=== PATIENT | male | born 1955 | race Caucasian/White ===

== ENCOUNTER 2023-01-21 12:45 | Outpatient (AMB) | payer MEDICARE, MEDICAID, SELFPAY ==
--- NOTE | 2023-01-21 13:04 | A.OFFVIS_ITS ---
Intake Vital Signs 3 01/21/23 13:13 01/21/23 13:16 01/21/23 13:19 Height 5 ft 7 in Weight 177 lb BMI 27.7 BP 219/70 H 202/94 H 189/70 H Blood Pressure Location Rt brachial Lt brachial Rt brachial Position Sitting Sitting Pulse 80 Pulse Source Pulse Oximeter Pulse Oximetry (%) 96 Oxygen Delivery Method Room Air Intake Visit Reasons: Postlaminectomy Syndrome Intake Note: Pain today 10 after taking pain medication Skid Strapper Required: No Accompanied by: Self / Same As Patient Allergies No Known Allergies Allergy (Verified 01/21/23 13:13) HPI Postlaminectomy Syndrome 2 HPI0 Details Patient is a pleasant 67 years old male with prior history of diabetes type 2, lower back pain and back surgeries x4 with fusion, cervical fusion in 2000, most recent L5-S1 surgery in 2017 ([facility]) presents today for initial evaluation for potential interventional treatments for his chronic back pain. He was considered for dorsal column stimulation. However his previous provider at [facility] indicated that his canal was too small and due to hardware placement, he is not good candidate for SCS. He has been refractory to conservative management in the past. His back pain is axial and also spreads across his lumbar and sacral regions and into his right lower extremity with numbness in his right foot. Patient recently received Caudal EMMA injection on 01/12/23 with no pain relief and no symptom improvement. Pain increases with walking, prolonged sitting or standing. Pain affects his ADLs, mobility, functioning, sleep, mood, and quality of life. He can tolerate standing in flex forward position with the cane and leaning against a wall or object. He was referred to our office by [facility] for potential peripheral nerve stimulation. Patient is currently managing his pain with opioid medication including MS Contin ER 15 mg daily, Oxycodone 10 mg 5x/day as needed and Pregabalin 200 mg TID which decreases his pain to 5-6/10. He reports being on much higher doses of opioids than this, including Fentanyl patch 100 mcg and MS Contin 300 mg BID. 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 Patient is hoping to decrease his pain so he can visit his siblings and grandson in other states. Currently he cannot tolerate long car or plane rides due to significant back pain. Denies any fever, abdominal or groin pain, bladder or bowel dysfunction or saddle anesthesia. Location Lower back, right leg, bilateral feet, right foot worse Duration Chronic pain for 44 years, worse over the last 10 years Characteristics of symptom or complaint Aching, burning, numbness, sharp, shooting, dull Aggravating or associated factors Any movement, walking, prolonged sitting or standing, weather changes Relieving factors Oxycodone 10mg 5x daily, Morphine ER 15 mg daily, Tylenol, heat therapy Treatment PT- no improvement, back surgeries x4, recent Caudal EMMA-no pain relief [facility] Medical History (Updated 01/24/23 @ 20:06 by EVA Posadas) Lumbar degenerative disc disease Radiculopathy, lumbar region Hearing loss Hepatitis C Type 2 diabetes mellitus Vertebral artery occlusion Migraine Hypertension Surgical History (Updated 01/21/23 @ 13:43 by Monica James) History of neck surgery History of back surgery History of cholecystectomy History of appendectomy Social History Alcohol intake: never Patient Tobacco Use Status: Current everyday Tobacco user Tobacco use type: Cigarette Cigarette Packs Per Day: 5 Review of Systems Const All systems reviewed & are unremarkable except as noted in HPI and below Physical Exam Vital Signs: Last Vital Signs Pulse 80 01/21/23 13:13 BP 189/70 H 01/21/23 13:19 Pulse Ox 96 01/21/23 13:13 Oxygen Delivery Method Room Air 01/21/23 13:13 BMI result Body Mass Index 27.7 General: Appears afebrile. Alert and oriented. Mood and affect appropriate. Follows and participates in conversation appropriately. Respiratory effort is unlabored. No cough. Able to transition from sit to stand unassisted. Uses cane with ambulation. Ambulates with bilaterally normal heel strike and toe off, but reports unsteadiness on the right. Back/Spine/Pelvis Other: Antalgic gait, mild limping. Can flex forward to 55-65 degrees and extend to 5- 10 degrees before experiencing lumbar pain. Demonstrates 5/5 left and 4/5 right strength of quadriceps bilaterally as well as flexion/dorsiflexion of bilateral feet against resistance. 2+ pedal pulses bilaterally. Seated straight leg rise with dorsiflexion positive bilaterally, worse on the left. Diminished patellar and achilles reflexes bilaterally. Facet loading test positive bilaterally. Pino sign, Mike?s, Pelvic compression and Stinchfield tests are positive bilaterally. No groin pain with I/E hip rotations. Valsalva maneuver negative. Well healed mid to lower back multiple scars. Cervical Spine: cervical muscular tenderness and No Cervical spine tenderness Thoracic/Lumbar Spine: thoracic and lumbar spine normal to inspection, Thoracic/lumbar spine scar(s), Lasegue's sign positive (right-localized, left- diffuse), pain with thoraco-lumbar ROM, paraspinal muscle tenderness, thoraco- lumbar ROM limited, No thoracic spinal tenderness and lumbar spinal tenderness Pelvis: buttock tenderness on the right Sacroiliac joints: bilaterally tender to palpation Results Reviewed Results Reviewed: Assessment & Plan Assessment & Plan (1) Lumbar post-laminectomy syndrome: Code(s): M96.1 - Postlaminectomy syndrome, not elsewhere classified (2) Lumbar degenerative disc disease: Code(s): M51.36 - Other intervertebral disc degeneration, lumbar region (3) Low back pain: Code(s): M54.50 - Low back pain, unspecified (4) Radiculopathy, lumbar region: Code(s): M54.16 - Radiculopathy, lumbar region Plan Request sent to [facility] for most recent thoracic and lumbar MRIs. Patient will bring disc with most recent thoracolumbar images to assess spinal canal and epidural cross-sectional areas. Discussed neuromodulation with Nevro SCS trial and implant for post laminectomy syndrome of his lumbar spine after reviewing his most recent thoracolumbar imaging. Patient is most likely not a candidate for Sprint PNS trial as well as RFA due to hardware placement. All questions were answered and the patient is in agreement of plan. Follow-up after imaging review and sooner as needed. Coding Level of Care Code New Pt Level 4 (86473) Diagnoses Lumbar post-laminectomy syndrome M96.1 Lumbar degenerative disc disease M51.36 Low back pain M54.50 Radiculopathy, lumbar region M54.16
[2023-01-21 13:13] VITALS: BP 219/70; PULSE 80; O2SAT 96; BMI 27.7
[2023-01-21 13:16] VITALS: BP 202/94
[2023-01-21 13:19] VITALS: BP 189/70
== END 2023-01-21 13:50 | disposition home or self-care (01) ==
PROVIDERS: PCP Internal Medicine; Visit Provider Nurse Practitioner Family
DX: M96.1 Postlaminectomy syndrome, not elsewhere classified (principal); M51.36 Other intervertebral disc degeneration, lumbar region; M54.50 Low back pain, unspecified; M54.16 Radiculopathy, lumbar region
CPT/HCPCS: 99204

== ENCOUNTER → 2023-01-21 12:45 | Outpatient (BNVA) | payer MEDICARE, MEDICAID, SELFPAY | PROVIDERS: PCP Internal Medicine; Visit Provider Nurse Practitioner Family ==

== ENCOUNTER 2023-05-19 16:49 | Outpatient (REF) | payer MEDICARE, MEDICAID, SELFPAY ==
--- NOTE | ~2023-05-19 | MR_ITS ---
MR THORACIC SPINE WITHOUT CONTRAST CLINICAL INFORMATION: Postlaminectomy syndrome. COMPARISON: Thoracic spine MRI 07/09/2020. TECHNIQUE: MRI of the thoracic spine was obtained using routine sequences without contrast. FINDINGS: There are 12 rib bearing thoracic type vertebral bodies. Artifact from laminar hooks and Hammond rods within the lower thoracic spine as well as partially imaged posterior fusion hardware within the lower lumbar spine, discussed in detail on the corresponding lumbar spine MRI. The spinal canal is not diagnostically assessed at the lower thoracic through lumbar levels due to significant distortion artifact from the surgical hardware. There is an upper thoracic kyphosis. Vertebral body heights are maintained. There are large multilevel endplate osteophytes within the mid to lower thoracic spine. No bone marrow edema. No acute fractures. Mild chronic upper endplate height loss at the T3 and T4 levels. Thoracic vertebral body heights are otherwise maintained. There is moderate disc volume loss at the T7-T8 level. There are small shallow disc protrusions at the T6-T7, T7-T8, and T8-T9 levels that minimally indent the ventral thecal sac at these levels. The imaged thoracic spinal cord is normal in morphology. Nondiagnostic assessment of the thoracic spinal cord at the T10-T11 level due to significant artifact from the surgical hardware. Partially imaged anterior fusion hardware within the lower cervical spine. There is a 1.7 cm right adrenal nodule that can be further assessed with adrenal protocol CT MR/MR thoracic spine wo con IMPRESSION: - Artifact from laminar hooks and Hammond rods within the lower thoracic spine as well as partially imaged posterior fusion hardware within the lower lumbar spine, discussed in detail on the corresponding lumbar spine MRI. The spinal canal and thoracic cord are not diagnostically assessed at T10-T11 level due to significant distortion artifact from the surgical hardware. - There is multilevel thoracic spondylosis. There is no severe central canal stenosis and there is no severe foraminal stenosis at the imaged thoracic levels. Nondiagnostic assessment of the T10-T11 level due to artifact. Large endplate osteophytes bilaterally at the T5-T10 levels. - There is a 1.7 cm right adrenal nodule that can be further assessed with adrenal protocol CT
--- NOTE | ~2023-05-19 | MR_ITS ---
MR LUMBAR SPINE WITHOUT AND WITH CONTRAST CLINICAL INFORMATION: Lumbar region radiculopathy. COMPARISON: Thoracic spine MRI performed earlier the same day. Lumbar spine MRI 09/02/2021. TECHNIQUE: MRI of the lumbar spine was obtained using routine sequences with and without contrast. Intravenous contrast: 8 mL Gadavist. FINDINGS: There are 5 nonrib-bearing lumbar-type vertebral bodies. Partially imaged Hammond rods with laminar hooks extending from the lower thoracic spine to the L3 level. Additional postoperative changes following posterior instrumented fusion spanning the L1-S1 levels and interbody fusion at L3-L4, L4-L5, and L5-S1. The surgical hardware is not diagnostically assessed on MRI and the surgical hardware results in significant artifact that limits assessment on this examination. No definite bone marrow edema accounting for artifact. The vertebral body heights are maintained. There is moderate to severe disc volume loss at T12-L1 and L1-L2. No definite pathologic enhancement with assessment limited by the degree of artifact at the postoperative levels. Severe paraspinal muscular atrophy bilaterally. At L1-L2, there are postoperative changes following laminectomy and posterior instrumented fusion. The central canal is patent and there is no foraminal stenosis. At L2-L3, there are postoperative changes following posterior instrumented fusion. Significant artifact from the Hammond rods and laminar hooks results in nondiagnostic assessment of the central canal and subarticular zones at this level. There is no foraminal stenosis. At L3-L4, there are postoperative changes following posterior instrumented lumbar interbody fusion and right lateral instrumented fusion. There is no central canal stenosis and there is no significant foraminal stenosis. At L4-L5, there are postoperative changes following laminectomy and posterior instrumented lumbar interbody fusion. There is no central canal stenosis. Osteophytic ridging contacts the traversing right L5 nerve root within the right subarticular zone and results in right-sided foraminal stenosis. At L5-S1, there are postoperative changes following posterior instrumented lumbar interbody fusion. There is diffuse osteophytic ridging without central canal stenosis. There is mild foraminal encroachment bilaterally. MR/MR lumbar spine wo/w con IMPRESSION: - Partially imaged Hammond rods with laminar hooks extending from the lower thoracic spine to the L3 level. Additional postoperative changes following posterior instrumented fusion spanning the L1-S1 levels and interbody fusion at L3-L4, L4-L5, and L5-S1 as well as right lateral instrumented fusion at L3-L4. The surgical hardware is not diagnostically assessed on MRI and the surgical hardware results in significant artifact that limits assessment on this examination. - At the L4-L5 postsurgical level, osteophytic ridging contacts the traversing right L5 nerve root within the right subarticular zone and results in right-sided foraminal encroachment which is difficult to assess due to artifact from the surgical hardware. There is also nondiagnostic assessment of the central canal and subarticular zones at L2-L3 due to artifact. Additional degenerative changes throughout the lumbar spine as discussed in detail above. Post contrast imaging is partially nondiagnostic due to artifact. - Severe paraspinal muscular atrophy bilaterally.
[2023-05-19] MEDS: gadobutroL 10 ML VIAL IVPUSH (18:17)
== END 2023-05-19 16:50 | disposition home or self-care (01) ==
LOC: HO.MRI 16:49
PROVIDERS: PCP Nurse Practitioner Adult Health; Visit Provider Nurse Practitioner Family
DX: M54.16 Radiculopathy, lumbar region (principal); M51.36 Other intervertebral disc degeneration, lumbar region; M96.1 Postlaminectomy syndrome, not elsewhere classified; M54.50 Low back pain, unspecified
CPT/HCPCS: 72146; 72158; A9585

== ENCOUNTER 2023-06-06 12:47 | Outpatient (REF) | payer MEDICARE, MEDICAID, SELFPAY ==
--- NOTE | ~2023-06-06 | XR_ITS ---
Examination: Thoracic and lumbar spine. CLINICAL INDICATION: Radiculopathy lumbar region COMPARISON: MRI thoracic and lumbar spine to a 24. TECHNIQUE: 3 views thoracic spine and 5 views lumbar spine. FINDINGS: Thoracic spine: There is maintained thoracic kyphosis. Mild indistinctness changes seen in mid dorsal spine with ventral spondylosis. There are 2 Hammond rods extending from lower dorsal dorsal spine inferiorly to the mid lumbar spine. There is no compression fracture of any of the dorsal vertebrae. There is moderate spondylosis. No lytic or sclerotic process seen. The paravertebral soft tissues are normal. Incidentally noted is ventral plate and screws for lower cervical spine fusion of C5 5, C6 and C7 vertebra. Lumbar spine: There is mild straightening of lumbar lordosis with Hammond rods extending from the L1 to S1 vertebra. There are bilateral pedicular screws L1 to S1 vertebra. Also visualized is a right lateral plate and screws from L3 through L4 vertebra for stability. There are disc prosthesis at L4-L5 and L3-L4 disc level for fusion. No aggressive lytic or sclerotic process seen. The paravertebral soft tissues are normal. There is no hardware malfunction. XR/XR thoracic spine 3V IMPRESSION: There are 2 Hammond rods extending from lower dorsal spine inferiorly to the mid lumbar spine. There is no thoracic spine compression fracture. There is moderate spondylosis throughout dorsal and lumbar spine. No lytic or sclerotic process seen. There is no hardware malfunction. 2 additional Hammond rods from L1 through S1 vertebra with bilateral pedicular screws at the vertebral levels. This is stabilized right lateral plate from L3 through L4 vertebra. There are disc prosthesis at L3-L4 and L4-L5 disc levels. No hardware malfunction seen. No aggressive lytic or sclerotic process of dorsal spine.
--- NOTE | ~2023-06-06 | XR_ITS ---
Examination: Thoracic and lumbar spine. CLINICAL INDICATION: Radiculopathy lumbar region COMPARISON: MRI thoracic and lumbar spine to a 24. TECHNIQUE: 3 views thoracic spine and 5 views lumbar spine. FINDINGS: Thoracic spine: There is maintained thoracic kyphosis. Mild indistinctness changes seen in mid dorsal spine with ventral spondylosis. There are 2 Hammond rods extending from lower dorsal dorsal spine inferiorly to the mid lumbar spine. There is no compression fracture of any of the dorsal vertebrae. There is moderate spondylosis. No lytic or sclerotic process seen. The paravertebral soft tissues are normal. Incidentally noted is ventral plate and screws for lower cervical spine fusion of C5 5, C6 and C7 vertebra. Lumbar spine: There is mild straightening of lumbar lordosis with Hammond rods extending from the L1 to S1 vertebra. There are bilateral pedicular screws L1 to S1 vertebra. Also visualized is a right lateral plate and screws from L3 through L4 vertebra for stability. There are disc prosthesis at L4-L5 and L3-L4 disc level for fusion. No aggressive lytic or sclerotic process seen. The paravertebral soft tissues are normal. There is no hardware malfunction. XR/XR lumbar spine 4V min IMPRESSION: There are 2 Hammond rods extending from lower dorsal spine inferiorly to the mid lumbar spine. There is no thoracic spine compression fracture. There is moderate spondylosis throughout dorsal and lumbar spine. No lytic or sclerotic process seen. There is no hardware malfunction. 2 additional Hammond rods from L1 through S1 vertebra with bilateral pedicular screws at the vertebral levels. This is stabilized right lateral plate from L3 through L4 vertebra. There are disc prosthesis at L3-L4 and L4-L5 disc levels. No hardware malfunction seen. No aggressive lytic or sclerotic process of dorsal spine.
== END 2023-06-06 12:48 | disposition home or self-care (01) ==
LOC: HO.XRAY 12:47
PROVIDERS: Absent Provider Nurse Practitioner Family; PCP Nurse Practitioner Adult Health; Visit Provider Anesthesiology
DX: M54.16 Radiculopathy, lumbar region (principal); M51.36 Other intervertebral disc degeneration, lumbar region; M54.50 Low back pain, unspecified; M96.1 Postlaminectomy syndrome, not elsewhere classified
CPT/HCPCS: 72072; 72110; 99212

== ENCOUNTER 2023-06-06 12:47 | Outpatient (AMB) | payer MEDICARE, MEDICAID, SELFPAY ==
[2023-06-06 13:05] VITALS: BP 160/72; PULSE 73; O2SAT 97; BMI 29.1
--- NOTE | 2023-06-06 13:05 | MHC.OFFVIS ---
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 He had multiple surgeries in the thoracic and lumbar spine. Those are fusions with hardware. Treatment with spinal cord stimulator Nevro was offered to the patient. He was also referred to us by [facility] to do peripheral nerve stimulation. However I am not sure what peripheral nerves I can stimulate to alleviate this patient's pain with this extensive hardware. First of all the patient was sent by his nurse practitioner for x-ray of the thoracic and lumbar spine to assess the possibility of interventional therapy. At the same time I would like to schedule him for psychological evaluation. Patient is under impression that his psychiatrist can issue him psychological evaluation and clearance for the procedure. I informed him that if his psychiatrist are not able to do so he needs to schedule appointment for psychological evaluation here in my office. He does not have computer at home. [facility] Medical History (Updated 01/24/23 @ 20:06 by EVA Posadas) Lumbar degenerative disc disease Radiculopathy, lumbar region Hearing loss Hepatitis C Type 2 diabetes mellitus Vertebral artery occlusion Migraine Hypertension Surgical History (Updated 01/21/23 @ 13:43 by Monica James) History of neck surgery History of back surgery History of cholecystectomy History of appendectomy Social History Alcohol intake: never Patient Tobacco Use Status: Current everyday Tobacco user Tobacco use type: Cigarette Cigarette Packs Per Day: 5 Review of Systems Const All systems reviewed & are unremarkable except as noted in HPI and below Physical Exam Vital Signs: Last Vital Signs Pulse 73 06/06/23 13:05 BP 160/72 H 06/06/23 13:05 Pulse Ox 97 06/06/23 13:05 Oxygen Delivery Method Room Air 06/06/23 13:05 BMI result Body Mass Index 29.1 General: Appears afebrile. Alert and oriented. Mood and affect appropriate. Follows and participates in conversation appropriately. Respiratory effort is unlabored. No cough. Able to transition from sit to stand unassisted. Uses cane with ambulation. Ambulates with bilaterally normal heel strike and toe off, but reports unsteadiness on the right. Back/Spine/Pelvis Other: Antalgic gait, mild limping. Can flex forward to 55-65 degrees and extend to 5-10 degrees before experiencing lumbar pain. Demonstrates 5/5 left and 4/5 right strength of quadriceps bilaterally as well as flexion/dorsiflexion of bilateral feet against resistance. 2+ pedal pulses bilaterally. Seated straight leg rise with dorsiflexion positive bilaterally, worse on the left. Diminished patellar and achilles reflexes bilaterally. Facet loading test positive bilaterally. Pino sign, Mike?s, Pelvic compression and Stinchfield tests are positive bilaterally. No groin pain with I/E hip rotations. Valsalva maneuver negative. Well healed mid to lower back multiple scars. Cervical Spine: cervical muscular tenderness and No Cervical spine tenderness Thoracic/Lumbar Spine: thoracic and lumbar spine normal to inspection, Thoracic/lumbar spine scar(s), Lasegue's sign positive (right-localized, left-diffuse), pain with thoraco-lumbar ROM, paraspinal muscle tenderness, thoraco-lumbar ROM limited, No thoracic spinal tenderness and lumbar spinal tenderness Pelvis: buttock tenderness on the right Sacroiliac joints: bilaterally tender to palpation Assessment & Plan Assessment & Plan (1) Lumbar post-laminectomy syndrome: Code(s): M96.1 - Postlaminectomy syndrome, not elsewhere classified (2) Lumbar degenerative disc disease: Code(s): M51.36 - Other intervertebral disc degeneration, lumbar region (3) Low back pain: Code(s): M54.50 - Low back pain, unspecified (4) Radiculopathy, lumbar region: Code(s): M54.16 - Radiculopathy, lumbar region Plan The patient needs to have x-ray of the thoracic and lumbar spine to evaluate hardware and possible openings to perform spinal cord stimulator. Also treatment with intrathecal pain pump may be considered . The patient needs to go for psychological evaluation to be ready for neuromodulation attempts. He is under impression that his psychiatrist will be able to give him such an evaluation. He will let us know if it is true or not if not we would need to schedule him for the psych evaluation here in the office because he does not owe the computer at home. Coding Level of Care Code Est Pt Level 3 (77324) Diagnoses Lumbar post-laminectomy syndrome M96.1 Lumbar degenerative disc disease M51.36 Low back pain M54.50 Radiculopathy, lumbar region M54.16
== END 2023-06-06 14:12 | disposition home or self-care (01) ==
PROVIDERS: PCP Nurse Practitioner Adult Health; Visit Provider Anesthesiology
DX: M96.1 Postlaminectomy syndrome, not elsewhere classified (principal); M51.36 Other intervertebral disc degeneration, lumbar region; M54.50 Low back pain, unspecified; M54.16 Radiculopathy, lumbar region
CPT/HCPCS: 99213

== ENCOUNTER 2023-07-19 12:36 | Outpatient (REF) | payer MEDICARE, MEDICAID, SELFPAY ==
--- NOTE | ~2023-07-19 | CT_ITS ---
EXAMINATION: CT THORACIC SPINE WITHOUT CONTRAST CLINICAL INFORMATION: Postlaminectomy syndrome, back pain COMPARISON: Thoracic spine x-ray on 06/06/2023, thoracic spine MRI on 05/19/2023 TECHNIQUE: Multiple 2 mm axial images were obtained from C7 to T12/L1 level without IV contrast enhancement. Bone window and soft tissue window images were reconstructed. Coronal and sagittal bone window images were reconstructed from the axial image data. This CT examination was performed using dose optimization techniques as appropriate, variously including the following: *Automated exposure control *Adjustment of mA and/or kV according to patient size (this includes techniques or standardized protocols for targeted exams where dose is matched to indication/reason for exam; i.e. extremities or head) *Use of iterative reconstruction technique DLP: 1068.00 mGy-cm EXAMINATION: CT thoracic spine. FINDINGS: The visualized thoracic spine is intact with normal alignment. Intervertebral disc spaces are well-preserved. Bilateral large sharp bridging syndesmophytes are seen down to T10 level. Starting from T9 level, thoracolumbar spine fixation with bilateral Hammond rods, with vertebral hooks, lumbar spine fixation with transpedicular screws and vertical bars are partially visualized. Bilateral thoracic apophyseal joints, pedicles, spinous processes are unremarkable. Bilateral thoracic bony neural foramina are patent. The visualized posterior medial portion of bilateral ribs are intact. No evidence of bony thoracic spinal stenosis. Lower cervical spine ACDF, fixation with anterior metallic plate and screws is partially visualized. A low-density lipomatous right adrenal lesion is seen measuring 2.0 cm in AP diameter, 1.4 cm in width, mean attenuation of -30.2 Hounsfield units (1.7 cm on MRI). CT/CT thoracic spine wo IV con IMPRESSION: 1. No evidence of bony thoracic spinal stenosis. 2. Bilateral large sharp bridging syndesmophytes are seen down to T10 level. 3. Thoracolumbar spine fixation with bilateral Hammond rods, with vertebral hooks, lumbar spine fixation with transpedicular screws and vertical bars are partially visualized. 4. Lower cervical spine ACDF, fixation with anterior metallic plate and screws is partially visualized. 5. Findings are compatible with right adrenal benign adenoma or myelolipoma.
== END 2023-07-19 12:37 | disposition home or self-care (01) ==
LOC: HO.CT 12:36
PROVIDERS: PCP Nurse Practitioner Adult Health; Visit Provider Nurse Practitioner Family
DX: M96.1 Postlaminectomy syndrome, not elsewhere classified (principal); M51.36 Other intervertebral disc degeneration, lumbar region
CPT/HCPCS: 72128

== ENCOUNTER 2023-08-03 13:14 | Outpatient (AMB) | payer MEDICARE, MEDICAID, SELFPAY ==
--- NOTE | 2023-08-03 13:19 | A.OFFVIS_ITS ---
Vital Signs 08/03/23 13:29 Height 5 ft 7 in Weight 188 lb 4 oz BMI 29.5 BP 140/70 H Blood Pressure Location Lt brachial Position Sitting Respiration 14 Pulse 72 Pulse Source Pulse Oximeter Pulse Oximetry (%) 94 Oxygen Delivery Method Room Air Intake Visit Reasons: CT Scan Results and ITDD Trial Discussion Intake Note: Patient comes in to discuss results. Reports pain 8/10. Allergies No Known Allergies Allergy (Verified 08/03/23 13:35) HPI Comments Details: Anjel is back in my office to discuss possibility of treatment of the pain with neuromodulation. She is suffering from postlaminectomy syndrome. She has extensive hardware in his back with L1-S1 fusion with hardware as well as stabilizing rods extending to T 11 vertebra with laminectomy T11 through L1 bone graft material forming dense bony roof over the spinal canal and therefore absence of the epidural space on the posterior surface of the spinal cord from T11 through S1. Therefore spinal cord stimulation trial would be out of question for this patient. It is not very clear whether or not this patient can receive implant of the spinal cord stimulation as well. I discussed this case with Dr. Herbert and we devised the following way of treatment. Because the patient is suffering from intractable lower back pain I offered him a trial of pain pump. He is on large doses of the opioids including morphine and oxycodone. Therefore my choice of the medication would be bupivacaine 1st. Non opioid medications will be considered 1st to treat this patient because they do not require patient to stop oral opioids. The trial will be done through the caudal canal using long 5 in 20 gauge pencil point needle. Such as Cazares needle 20 gauge. If I will obtain CSF right away there I will inject trialing medicine. If the medication will help the patient in the significant extent I will scrubbed with Dr. Herbert for the implantation of the pain pump. Dr. Herbert will open the thoracic spine and will perform laminotomy and microscopic dural puncture through which he will insert the intrathecal catheter all the way down to T8 -T9 level. After that I will complete the procedure by anchoring the device and implanting intrathecal pain pump. Prior: complains on pain in the thoracic and lumbar spine. He had multiple surgeries in the thoracic and lumbar spine. Those are fusions with hardware. Treatment with spinal cord stimulator Trinity[employer] was offered to the patient. He was also referred to us by [facility] to do peripheral nerve stimulation. However I am not sure what peripheral nerves I can stimulate to alleviate this patient's pain with this extensive hardware. First of all the patient was sent by his nurse practitioner for x-ray of the thoracic and lumbar spine to assess the possibility of interventional therapy. At the same time I would like to schedule him for psychological evaluation. Patient is under impression that his psychiatrist can issue him psychological evaluation and clearance for the procedure. I informed him that if his psychiatrist are not able to do so he needs to schedule appointment for psychological evaluation here in my office. He does not have computer at home. [facility] Medical History (Updated 01/24/23 @ 20:06 by EVA Posadas) Lumbar degenerative disc disease Radiculopathy, lumbar region Hearing loss Hepatitis C Type 2 diabetes mellitus Vertebral artery occlusion Migraine Hypertension Surgical History (Updated 01/21/23 @ 13:43 by Monica James) History of neck surgery History of back surgery History of cholecystectomy History of appendectomy Social History Alcohol intake: never Patient Tobacco Use Status: Current everyday Tobacco user Tobacco use type: Cigarette Cigarette Packs Per Day: 5 Review of Systems Const All systems reviewed & are unremarkable except as noted in HPI and below Physical Exam Vital Signs: Last Vital Signs Pulse 72 08/03/23 13:29 Resp 14 08/03/23 13:29 BP 140/70 H 08/03/23 13:29 Pulse Ox 94 08/03/23 13:29 Oxygen Delivery Method Room Air 08/03/23 13:29 BMI result Body Mass Index 29.5 General: Appears afebrile. Alert and oriented. Mood and affect appropriate. Follows and participates in conversation appropriately. Respiratory effort is unlabored. No cough. Able to transition from sit to stand unassisted. Uses cane with ambulation. Ambulates with bilaterally normal heel strike and toe off, but reports unsteadiness on the right. Back/Spine/Pelvis Other: Antalgic gait, mild limping. Can flex forward to 55-65 degrees and extend to 5- 10 degrees before experiencing lumbar pain. Demonstrates 5/5 left and 4/5 right strength of quadriceps bilaterally as well as flexion/dorsiflexion of bilateral feet against resistance. 2+ pedal pulses bilaterally. Seated straight leg rise with dorsiflexion positive bilaterally, worse on the left. Diminished patellar and achilles reflexes bilaterally. Facet loading test positive bilaterally. Pino sign, Mike?s, Pelvic compression and Stinchfield tests are positive bilaterally. No groin pain with I/E hip rotations. Valsalva maneuver negative. Well healed mid to lower back multiple scars. Cervical Spine: cervical muscular tenderness and No Cervical spine tenderness Thoracic/Lumbar Spine: thoracic and lumbar spine normal to inspection, Thoracic/lumbar spine scar(s), Lasegue's sign positive (right-localized, left- diffuse), pain with thoraco-lumbar ROM, paraspinal muscle tenderness, thoraco- lumbar ROM limited, No thoracic spinal tenderness and lumbar spinal tenderness Pelvis: buttock tenderness on the right Sacroiliac joints: bilaterally tender to palpation Assessment & Plan Assessment & Plan (1) Lumbar post-laminectomy syndrome: Code(s): M96.1 - Postlaminectomy syndrome, not elsewhere classified Category: Medical (2) Lumbar degenerative disc disease: Code(s): M51.36 - Other intervertebral disc degeneration, lumbar region Category: Medical (3) Low back pain: Code(s): M54.50 - Low back pain, unspecified Category: Medical (4) Radiculopathy, lumbar region: Code(s): M54.16 - Radiculopathy, lumbar region Category: Medical Plan The patient was given psychological evaluation by his psychology the copy of which is in the chart. His psychologist reports that patient would benefit from intrathecal therapy and there is no contraindication from psychological standpoint for implantable device. Will schedule patient for the trial as described above. I will see the patient after the trial if it will be successful we will proceed with the implantation as described above. Patient Instructions: I here by testify that I spent 50 minutes in conversation with this patient, conversation with colleagues about the patient, evaluating his prior records and prior studies as well as organizing this note. Coding Level of Care Code Est Pt Level 5 (56551) Diagnoses Lumbar post-laminectomy syndrome M96.1 Lumbar degenerative disc disease M51.36 Low back pain M54.50 Radiculopathy, lumbar region M54.16
[2023-08-03 13:29] VITALS: BP 140/70; PULSE 72; RESP 14; O2SAT 94; BMI 29.5
== END 2023-08-03 13:45 | disposition home or self-care (01) ==
PROVIDERS: PCP Nurse Practitioner Adult Health; Visit Provider Anesthesiology
DX: M96.1 Postlaminectomy syndrome, not elsewhere classified (principal); M51.36 Other intervertebral disc degeneration, lumbar region; M54.50 Low back pain, unspecified; M54.16 Radiculopathy, lumbar region
CPT/HCPCS: 99215

== ENCOUNTER → 2023-08-03 13:14 | Outpatient (BNVA) | payer MEDICARE, MEDICAID, SELFPAY | PROVIDERS: PCP Nurse Practitioner Adult Health; Visit Provider Anesthesiology | DX: M96.1 Postlaminectomy syndrome, not elsewhere classified (principal); M51.36 Other intervertebral disc degeneration, lumbar region; M54.50 Low back pain, unspecified; M54.16 Radiculopathy, lumbar region | CPT/HCPCS: 99212 ==